=== PATIENT | female | born 1995 | race Two or more races ===

== ENCOUNTER 2017-06-22 16:47 | Emergency (ER) | payer BC, MEDICAID ==
[~2017-06-22] VITALS: Ht 165.1 cm; Wt 104.1 kg
[2017-06-22] MEDS ORDERED: SODIUM CHLORIDE FLUSH 10ML SYR IVF ONE (17:00)
[2017-06-22] MEDS ORDERED: ONDANSETRON 2MG/ML, 2ML IVPush ONE (17:00)
[2017-06-22] MEDS ORDERED: MORPHINE SULFATE 4 MG/ML, 1ML IVPush PRN (17:00)
[2017-06-22] MEDS ORDERED: SODIUM CHLORIDE 0.9% 1,000ML IVBOLUS ONE (17:00)
[2017-06-22 17:30] LABS: ASPARTATE AMINO TRANSFERASE 16 U/L (15-37); BLOOD UREA NITROGEN 15 mg/dL (7-18)
[2017-06-22] MEDS ORDERED: HYDROmorphone 2 MG/ML, 1ML ONE (17:39)
[2017-06-22] MEDS ORDERED: ONDANSETRON ODT 4 MG ONE (17:39)
[2017-06-22] MEDS ORDERED: HYDROmorphone 1 MG/ML, 1ML IM ONE (18:30)
[2017-06-22] MEDS ORDERED: ONDANSETRON ODT 4 MG PO ONE (18:30)
[2017-06-22 19:10] VITALS: BP 120/71
[2017-06-22] MEDS ORDERED: OXYcodone/APAP 5/325MG TABLET ONE (19:50)
[2017-06-22] MEDS ORDERED: OXYcodone/APAP 5/325MG TABLET PO ONE (20:00)
== END 2017-06-22 20:00 | disposition home or self-care (01) ==
LOC: ED 18:22
DX: K80.50 Calculus of bile duct without cholangitis or cholecystitis without obstruction (principal)
CPT/HCPCS: 36415; 74000; 76700; 80053; 81003; 83690; 84703; 85025; 96372; 99285; J1170; Q0162

== ENCOUNTER 2017-06-27 07:00 | Day surgery (SDC) | payer MEDICAID ==
[~2017-06-27] VITALS: Ht 165.1 cm; Wt 103.3 kg
[2017-06-27 07:54] VITALS: BP 113/77
[2017-06-27 08:05] LABS: HCG UR OBC PASS
[2017-06-27] MEDS ORDERED: OXYC-302 PO (08:06)
[2017-06-27] MEDS ORDERED: LIDOCAINE 1%, 2ML ONE (08:08)
[2017-06-27] MEDS ORDERED: LACTATED RINGERS 1,000 ML IV SCH (08:17)
[2017-06-27] MEDS ORDERED: LIDOCAINE 1%, 2ML SQ PRN (08:30)
[2017-06-27] MEDS ORDERED: BUPIVACAINE/PF-EPI 0.5% 1:200K ONE (08:47)
[2017-06-27] MEDS ORDERED: MIDAZOLAM 1 MG/ML, 2ML ONE (08:54)
[2017-06-27] MEDS ORDERED: FENTANYL PF 250 MCG/5ML ONE (08:54)
[2017-06-27] MEDS ORDERED: METOCLOPRAMIDE 5 MG/ML, 2ML ONE (08:55)
[2017-06-27] MEDS ORDERED: PROPOFOL 10 MG/ML, 20ML ONE (08:55)
[2017-06-27] MEDS ORDERED: SUCCINYLCHOLINE 20 MG/ML, 10ML ONE (08:55)
[2017-06-27] MEDS ORDERED: GLYCOPYRROLATE 0.2MG/1ML ONE (08:55)
[2017-06-27] MEDS ORDERED: ONDANSETRON 2MG/ML, 2ML ONE (08:55)
[2017-06-27] MEDS ORDERED: DEXAMETHASONE 4 MG/ML, 1ML ONE (08:55)
[2017-06-27] MEDS ORDERED: CEFOTETAN 2 GM ONE (08:55)
[2017-06-27] MEDS ORDERED: NEOSTIGMINE 1 MG/ML, 10ML ONE (08:55)
[2017-06-27] MEDS ORDERED: ROCURONIUM 10 MG/ML ONE (08:55)
[2017-06-27] MEDS ORDERED: KETOROLAC 30 MG/1 ML ONE (08:55)
[2017-06-27] MEDS ORDERED: HYDROmorphone 1 MG/ML, 1ML ONE (09:42)
[2017-06-27] MEDS ORDERED: OXYcodone 5 MG/5 ML ORAL.SOL UDC ONE (09:58)
[2017-06-27] MEDS ORDERED: FENTANYL PF 100 MCG/2ML ONE ×2 (09:58→10:29)
[2017-06-27] MEDS ORDERED: ACETAMINOPHEN 650 MG/20.3 ML UDC ONE (09:58)
[2017-06-27] MEDS ORDERED: ACETAMINOPHEN 325 MG/10.15 ML UDC ONE (09:58)
[2017-06-27] MEDS ORDERED: PROMETHAZINE 25 MG/ML, 1ML IV PRN (10:00)
[2017-06-27] MEDS ORDERED: DIAZEPAM 5 MG/ML, 2ML IVPush PRN (10:00)
[2017-06-27] MEDS ORDERED: MEPERIDINE/PF 25MG/0.5ML IVPush PRN (10:00)
[2017-06-27] MEDS ORDERED: MIDAZOLAM 1 MG/ML, 2ML IV PRN (10:00)
[2017-06-27] MEDS ORDERED: LABETALOL 5MG/ML, 20ML IV PRN (10:00)
[2017-06-27] MEDS ORDERED: HYDROmorphone 1 MG/ML, 1ML IV PRN (10:00)
[2017-06-27] MEDS ORDERED: hydrALAzine 20 MG/ML, 1ML IV PRN (10:00)
[2017-06-27] MEDS ORDERED: ALBUTEROL/IPRATROPIUM 2.5MG/0.5MG, 3 ML NPPB PRN (10:00)
[2017-06-27] MEDS ORDERED: OXYcodone 5 MG/5 ML ORAL.SOL UDC PO PRN (10:00)
[2017-06-27] MEDS ORDERED: ACETAMINOPHEN 325 MG TABLET PO PRN (10:00)
[2017-06-27] MEDS ORDERED: ONDANSETRON 2MG/ML, 2ML IVPush PRN (10:00)
[2017-06-27] MEDS: FENTANYL PF 100 MCG/2ML IV PRN ×3 (10:02→10:31)
== END 2017-06-27 11:50 ==
LOC: OUT 07:00
PROVIDERS: ATTEND Surgery
DX: K82.4 Cholesterolosis of gallbladder (principal); K82.8 Other specified diseases of gallbladder
CPT/HCPCS: 47562; 81025; 88304; J0330; J1100; J1170; J1885; J2250; J2405; J2704; J2710; J2765; J3010; J3490; J7120; S0074

== ENCOUNTER 2017-07-12 12:54 | Emergency (ER) | payer MEDICAID ==
[~2017-07-12] VITALS: Ht 165.1 cm; Wt 101.4 kg
[~2017-07-12 12:54] MED LIST: OXYC-302 PO
[2017-07-12] MEDS ORDERED: MORPHINE SULFATE 4 MG/ML, 1ML IVPush PRN (13:30)
[2017-07-12] MEDS ORDERED: SODIUM CHLORIDE 0.9% 1,000ML IVBOLUS ONE (13:30)
[2017-07-12] MEDS ORDERED: ONDANSETRON 2MG/ML, 2ML IVPush ONE (13:30)
[2017-07-12] MEDS ORDERED: SODIUM CHLORIDE FLUSH 10ML SYR IVF ONE (13:30)
[2017-07-12 13:47] LABS: HEMATOCRIT 44.5 % (34.6-47.8); HEMOGLOBIN 14.5 g/dL (11.7-16.4); WHITE BLOOD COUNT 13.3 x10^3/uL (3.4-10)
[2017-07-12 13:57] LABS: ASPARTATE AMINO TRANSFERASE 8 U/L (15-37); BLOOD UREA NITROGEN 10 mg/dL (7-18)
[2017-07-12] MEDS ORDERED: ONDANSETRON 2MG/ML, 2ML ONE (14:01)
[2017-07-12] MEDS ORDERED: MORPHINE SULFATE 4 MG/ML, 1ML ONE (14:01)
[2017-07-12] MEDS ORDERED: OMNIPAQUE 350 MG/ML, 100ML BOTTLE ONE (14:52)
[2017-07-12 16:34] VITALS: BP 99/51
== END 2017-07-12 16:36 | disposition home or self-care (01) ==
LOC: ED 13:57
DX: G89.29 Other chronic pain (principal); R10.11 Right upper quadrant pain; R11.2 Nausea with vomiting, unspecified; Z90.49 Acquired absence of other specified parts of digestive tract
CPT/HCPCS: 36415; 74177; 80053; 81003; 83690; 84703; 85025; 96361; 96374; 96375; 99285; J2405; J7030; Q9967

== ENCOUNTER 2021-05-26 18:58 | Emergency (ER) | payer MEDICAID ==
[~2021-05-26] VITALS: Ht 165.1 cm; Wt 80.6 kg
[~2021-05-26 18:58] MED LIST changes: -OXYC-302 PO; +OXYC1TAB14 PO
[2021-05-26 19:20] VITALS: BP 123/81
--- NOTE | 2021-05-26 23:02 | NUR ---
called in the lobby 3 times, no answer.
== END 2021-05-26 23:04 | disposition left against medical advice (07) ==
LOC: ED 22:00
DX: R07.89 Other chest pain (principal); Z53.21 Procedure and treatment not carried out due to patient leaving prior to being seen by health care provider
CPT/HCPCS: 93005

== ENCOUNTER 2021-05-28 10:00 | Emergency (ER) | payer MEDICAID ==
[~2021-05-28] VITALS: Ht 165.1 cm; Wt 78.0 kg
--- NOTE | 2021-05-28 10:38 | NUR ---
ASSUMED CARE OF PT. SHE IS HERE FOR CPX2. SHE REPORTS THAT FOR 2 WEEKS SHE HAS HAD INTERMITTENT CP ACCOMPANIED W/ SOB, LEFT ARM PAIN AND NUMBNESS IN HER LEFT HAND. NOTHING MAKES IT BETTER/WORSE AND IS UNABLE TO IDENTIFY TRIGGER FOR SX. PT IN GOWN, HOOKED TO MONITOR. MALIKA MAJOR, CALL LIGHT W/IN REACH. Addendum: 05/28/21 at 1040 by TORY DENYING CP, SOB AND PAIN IN LEFT ARM AT THIS TIME. PAIN LAST APPROX 30 MINUTES WHEN IT DOES OCCUR.
[2021-05-28 10:56] VITALS: BP 127/71
--- NOTE | 2021-05-28 11:28 | NUR ---
Patient given discharge instructions and they have confirmed that they understand the instructions. Patient ambulatory with steady gait.
== END 2021-05-28 11:37 | disposition home or self-care (01) ==
LOC: ED 10:56
DX: R07.89 Other chest pain (principal)
CPT/HCPCS: 93005; 99283

== ENCOUNTER 2021-07-20 09:40 | Emergency (ER) | payer MEDICAID ==
[~2021-07-20] VITALS: Ht 165.1 cm; Wt 78.2 kg
[~2021-07-20 09:40] MED LIST changes: +OXYC1TAB12 PO; -OXYC1TAB14 PO
--- NOTE | 2021-07-20 11:09 | NUR ---
PT C/O VOMITTING EVERY MORNING X1 MONTH. FEELS NAUSEATED THROUGHOUT THE DAY, WITH NO VOMITTING. LMP 06/08/2021. PT AMBULATED TO RESTROOM WITH STEADY GAIT TO PROVIDE URINE SAMPLE. UA ORDERED PER PROTOCOL AND SENT TO LAB.
[2021-07-20 11:34] LABS: MICROSCOPIC INDICATED
[2021-07-20 12:44] LABS: BASOPHILS % (AUTO) 0 % (0-1); EOSINOPHILS % (AUTO) 2 % (1-7); LYMPHOCYTES % (AUTO) 19 % (22-44); MEAN CORPUSCULAR HEMOGLOBIN 27.9 pg (27.0-34.8); MEAN CORPUSCULAR HGB CONC 33.2 g/dL (32.4-35.8); MEAN PLATELET VOLUME 8.5 fL (7.4-10.4); MONOCYTES % (AUTO) 6 % (2-9); NEUTROPHILS % (AUTO) 74 % (42-75); PLATELET COUNT 281 x10^3/uL (130-400); RED CELL DISTRIBUTION WIDTH 13.7 % (9.6-15.2)
[2021-07-20 12:56] LABS: ALANINE AMINOTRANSFERASE 23 U/L (12-78); ALBUMIN 3.6 g/dL (3.4-5.0); ANION GAP 4 mmol/L (5-15); CALCIUM 8.6 mg/dL (8.5-10.1); CHLORIDE 105 mmol/L (98-107); CREATININE 0.63 mg/dL (0.55-1.02)
[2021-07-20 12:59] LABS: ALKALINE PHOSPHATASE 94 U/L (45-117); BILIRUBIN,TOTAL 0.5 mg/dL (0.2-1.0); TOTAL PROTEIN 7.8 g/dL (6.4-8.2)
--- NOTE | 2021-07-20 13:29 | NUR ---
ALL RESULTS ARE BACK AT THIS TIME. CHART UP FOR RECHECK
--- NOTE | 2021-07-20 14:05 | NUR ---
REPORT FROM DILLON SAEZ. NEW ORDERS FOR LAB AND US. PT UPDATED ON POC. WCTM.
[2021-07-20 16:25] VITALS: BP 114/58
== END 2021-07-20 16:27 | disposition home or self-care (01) ==
LOC: ED 15:39
DX: O00.01 Abdominal pregnancy with intrauterine pregnancy (principal); Z90.49 Acquired absence of other specified parts of digestive tract; Z3A.01 Less than 8 weeks gestation of pregnancy
CPT/HCPCS: 36415; 76801; 80053; 81001; 83690; 84702; 84703; 85025; 99284